=== PATIENT | female | born 1940 | race Caucasian/White ===

== ENCOUNTER 2023-08-04 19:13 | Emergency (ER) | payer MEDICARE, SELFPAY ==
[2023-08-04 19:14] VITALS: BMI 27.4
[2023-08-04 19:19] VITALS: BP 113/83
[2023-08-04 19:21] LABS: Glucose - Point of Care 102 mg/dl (70-99)
--- NOTE | 2023-08-04 19:23 | ED.PDOC.TRB ---
ED Provider Triage
-
Patient seen by provider in Triage?: Seen in Triage
*Initially assessed in ED triage to expedite workup*
83 yo female presenting with L facial droop and gait dysfunction. First noticed she was 'listing to the left' 3 days ago. Was noted to have facial drooping while FaceTiming with family member today. Denies paresthesias or speech difficulty. Not on
OAC.
Moderate L facial droop noted a nasolabial fold, minimal correction displayed, no brow involvement. Minor LUE drift otherwise no focal deficits. Speech Normal. NIH 3. Outside tpA window and IAT window. No indication for stroke alert.
Will order CTH, CBC, CMP, EKG
[2023-08-04 19:39] LABS: % Basophils 1.4 % (0-2); % Eosinophils 3.4 % (0-6); % Immature Granulocytes 0.3 % (0-0.5); % Neutrophils 53.9 % (42.2-75.2); Absolute Basophils 0.1 10^3/uL (0-0.2); Absolute Eosinophils 0.4 10^3/uL (0-0.7); Absolute Lymphocytes 3.3 10^3/uL (1.2-3.4); Absolute Monocytes 0.9 10^3/uL (0.1-0.6); Absolute Neutrophils 5.5 10^3/uL (1.4-6.5); Hemoglobin 14.8 g/dL (12.0-16.0); Mean Corp Hgb Conc. 35.2 g/dL (33.0-37.0); Mean Corpuscular Hgb 29.6 pg (27.0-31.0); Mean Platelet Volume 9.4 fL (7.4-10.4); Nucleated Red Blood Cells % 0 %; Platelet Count 309 10^3/uL (130-400); Red Cell Dist. Width 13.7 % (11.5-14.5); White Blood Cell Count 10.2 10^3/uL (4.8-10.8)
[2023-08-04 20:02] LABS: ALT (SGPT) < 10 U/L (0-35); AST (SGOT) 23 U/L (14-36); Albumin 4.3 g/dl (3.5-5.0); Alkaline Phosphatase 84 U/L (38-126); Blood Urea Nitrogen 21 mg/dl (7-17); Calcium 10.4 mg/dl (8.4-10.2); Carbon Dioxide 30 mmol/L (22-30); Chloride 97 mmol/L (98-107); Glucose 109 mg/dl (70-99); Potassium 3.9 mmol/L (3.5-5.1); Sodium 136 mmol/L (135-145); Total Bilirubin 0.8 mg/dl (0.2-1.3); Total Protein 6.7 g/dl (6.3-8.2); eGFR > 60.00
--- NOTE | 2023-08-04 21:15 | ED.CVA ---
History of Present Illness
General
Chief Complaint: CVA/TIA Symptoms
Time Seen by Provider: 08/04/23 20:48
Onset of Stroke Symptoms
Onset of symptoms known: No
Time pt last seen normal is known: No
Travel History
Have you had any contact with someone who has COVID-19?: No
Do you have any symptoms of coronavirus? Fever > 100 degrees, chills, cough, shortness of breath, sore throat, loss of taste or smell, muscle aches, or headache?: No
History of Present Illness
History of Present Illness:
Patient presents emergency department with left-sided facial droop and left-sided drifting for the past 3 days. She notes that her daughter noticed that yesterday while they were face timing but she believes symptoms started a few days prior. She
denies any dizziness or blurry vision.
Of note, patient follows with [facility] for history of lung cancer. She is status post chemo and radiation and reports that she is currently in remission.
Past History
Past History
ED Past Medical History: Cancer and HTN
ED Past Surgical History: Other (R lung surgery)
Patient has exhibited threatening behavior?: No
Social History
Tobacco: Smoker
Phy Exam
Physical Exam
Physical Exam:
GENERAL APPEARANCE: NAD, leaning to left
EYES lids/conjunctiva normal
EARS/NOSE/THROAT Mucous membranes moist, uvula midline without oral pharyngeal erythema, exudate or swelling
HEAD/NECK normocephalic atraumatic, neck is supple.
RESPIRATORY respiratory effort normal, speaks in full sentences, no accessory muscle use. Lungs clear to auscultation without rhonchi, wheezes, rales
CARDIAC Regular rate and rhythm, no edema.
ABDOMINAL Soft, ND/NT. No pulsatile masses on exam, rebound tenderness, Mchugh sign or pain over Mcburney's point.
MUSCLES/EXTREMITIES No abnormal range of motion, no swelling.
SKIN Warm, pink and dry. No rashes
NEUROLOGICAL Speech is clear and appropriate. Normal level of consciousness. L sided facial droop, able to partially overcome. No brow involvement. L arm drift, does not hit bed in 10 seconds. +dysmetria on L
PSYCH Normal mood and affect. Judgement/competence is appropriate
Course
Orders/Labs/Results
Orders:
Orders
08/04/23 19:22
CT Head W/o Iv Contrast Urgent
Comment:
Reason For Exam: L facial droop, gait dysfunction
08/04/23 19:23
Electrocardiogram (*1) Urgent
Reason for Study: TIA/Stroke
EKG- Treatment ONCE
08/04/23 19:31
Complete Blood Count/With Diff Urgent
Comprehensive Metabolic Panel Urgent
08/04/23 21:26
Dexamethasone Sod Phosphate [Decadron] 8 mg IV NOW STA
Levetiracetam Injectable [Keppra] 500 mg IV NOW STA
Abnormal Lab Results
08/04/23 08/04/23
19:19 19:31
Absolute Monos (auto) 0.9 H 10^3/uL
(0.1-0.6)
Chloride 97 L mmol/L
(98-107)
BUN 21 H mg/dl
(7-17)
Glucose 109 H mg/dl
(70-99)
Calcium 10.4 H mg/dl
(8.4-10.2)
POC Glucose 102 H mg/dl
(70-99)
08/04/23 19:31
08/04/23 19:31
Vital Signs
Initial and Last Documented VS:
Initial Vital Signs
Temp Pulse Resp BP Pulse Ox
97.5 F 78 18 113/83 98
08/04/23 19:19 08/04/23 19:19 08/04/23 19:19 08/04/23 19:19 08/04/23 19:19
Last Documented Vital Signs
Temp Pulse Resp BP Pulse Ox
97.5 F 80 30 113/83 95
08/04/23 19:19 08/04/23 21:45 08/04/23 21:45 08/04/23 19:19 08/04/23 21:45
*Critical Care Note
Total Time (30-74mins, 75-104mins- exclusive of procedures): Not Applicable
ED Attending Note
ED Attending Note
ED Attending Note:
Patient presents the emergency department with 3 days of new neurologic symptoms with leaning to the left, left-sided facial droop and left arm coordination difficulties and weakness. CT scan showing a new area of cytotoxic edema in the right
cerebellar hemisphere extending into the right cerebellar peduncle and inferior vermis suggesting underlying neoplasm there is associated mass effect in the superior cerebellar cistern and compression of the fourth ventricle. Given location of
edema as well as mass effect, patient will need transfer to a center with neurosurgical capabilities. Reached out to [facility] as most of her care is there however they were unable to accept patient as they do not have neurosurgical
capabilities. Reached out to [facility], awaiting callback
Discussed with Dr. Brock from [facility]. He accepts patient for transfer. Recommends 8mg loading Decadron. 4mg q6h (4am, 10am, 2pm), Keppra 500 q12h (10pm, 10am)
-
Portions of this chart may have been created with voice recognition software.� Occasional wrong word or��sound alike� substitutions may have occurred due to the inherent limitations of voice recognition software.
Discharge Plan
Departure
Patient Disposition: Acute Care Hospital
Date of Disposition: 08/04/23
Time of Disposition: 21:32
Admit to doctor: transfer to [facility]. Dr. Benito Brock
Discharge Problem:
Cytotoxic brain edema
Prescriptions:
No Action
amlodipine 10 MG tablet
10 mg PO DAILY
atorvastatin 10 mg Tablet
10 mg PO DAILY@1500
aspirin 81 mg Tablet,Chewable
81 mg PO DAILY
calcium carbonate [Tums] 200 mg calcium (500 mg) Tablet,Chewable
200 mg PO TIDPRN PRN (Reason: heartburn)
albuterol sulfate 90 mcg/actuation HFA aerosol inhaler
2 puff inhalation Q6H PRN (Reason: shortness of breath or wheezing) Qty: 8.5 1RF
hydralazine 25 mg tablet
25 mg PO TID
Referrals:
Vickie Padgett MD [Family Provider] -
Hospital Transfer
Other hospital: [facility]
I certify that the patient requires transfer: Yes
Discussed case with accepting physician: Benito Brock
Reason for transfer: higher level of care and specialties available
Interventions
Interventions:
*Risk Screen - Suicide Last Done: 08/04/23 19:19
*General Assessment Last Done: 08/04/23 19:19
*Neglect/Abuse Screening Last Done: 08/04/23 19:19
ED- Neurological Assessment Last Done: 08/04/23 21:34
ED Swallowing Screen Last Done: 08/04/23 21:34
Discharge Date and Time
Print Language: ARABIC
[2023-08-04] MEDS: KEPPRA 500 MG IV (21:45)
[2023-08-04] MEDS: DECADRON 8 MG IV (21:46)
[2023-08-05] VITALS: BP 155/98
== END 2023-08-05 00:50 | disposition short-term general hospital (02) ==
LOC: EMR 19:13
PROVIDERS: Physician Assistant; EMERGENCY PHYSICIAN Emergency Medicine; FAMILY PHYSICIAN Internal Medicine
DX: G93.6 Cerebral edema (principal); I10 Essential (primary) hypertension; F17.200 Nicotine dependence, unspecified, uncomplicated; Z86.73 Personal history of transient ischemic attack (TIA), and cerebral infarction without residual deficits
CPT/HCPCS: 99284; 96374; 96375; 70450; 80053; 82962; 85025; 93005